=== PATIENT | male | born 1975 | race Caucasian/White ===

== ENCOUNTER → 2017-01-17 | Day surgery (SDC) | payer OTHER ==
[~2017-01-17] VITALS: Ht 177.8 cm; Wt 95.3 kg
[~2017-01-17] MED LIST: ACETAMINOPHEN 325 MG TAB PO PRN; ATOR40TA75 PO; AcetaZOLAMIDE 500MG INJECTION (J1120) As Ordered ONE; BETAMETHASONE SOLUSPAN 6MG/ML INJ 5ML (J0702) As Ordered ONE; HEALON DUET (HEALON 10MG/ML 0.55ML & HEALON ENDOCOAT 30MG/ML 0.85ML) As Ordered ONE; KETOROLAC 0.5% OPHTH SOLN OS ONE; LIDOCAINE 1% MDV 20ML VIAL SC ONE; LIDOCAINE 2% INJ 100 MG/5 ML SDV (FOR ANES.) As Ordered ONE; LIDOCAINE 4% INJ 5 ML AMP OU ONE; LR 1,000 ML IV ONE; LR 1,000 ML IV SCH; MANNITOL 20% BAG 250 ML IV ONE; MEPERIDINE INJ 25 MG/ML VIAL (J2175) IV PRN; METF750T PO; METOCLOPRAMIDE INJ 10MG/2ML VIAL (J2765) IV PRN; MIDAZOLAM INJ 2 MG/2 ML VIAL (J2250) As Ordered ONE; OFLOXACIN 0.3 % (OCUFLOX) OPTH SOL 5ML OS ONE; ONDANSETRON 4MG/2ML VIAL (J2405) As Ordered ONE; ONDANSETRON 4MG/2ML VIAL (J2405) IV PRN; PILOCARPINE 1% OPHTH SOLN 15 ML OS ONE; POVIDONE-IODINE 5% OPHTH PREP SOL 30ML As Ordered ONE; PROPARACAINE 0.5% OPHTH SOL 15ML OS PRN; PROPOFOL 200 MG/20 ML VIAL As Ordered ONE; ROCURONIUM BROMIDE 50 MG/5 ML VIAL/SYRINGE As Ordered ONE; TOBRADEX OPHTH OINT 3.5 GM As Ordered ONE; TOBRAMYCIN INJ 80 MG/2 ML VIAL (J3260) As Ordered ONE; TRIMETHOBENZAMIDE 300 MG CAP PO PRN; VITA100067 PO; fentaNYL 100 MCG/2 ML INJECTION (J3010) As Ordered ONE; fentaNYL 100 MCG/2 ML INJECTION (J3010) IV PRN
[2017-01-17] MEDS: PERCOCET 5MG/325MG TAB PO PRN ×2 (09:40→10:05)
[2017-01-17 10:48] VITALS: BP 136/91
--- NOTE | 2017-01-19 10:40 | RO ---
DATE OF PROCEDURE: 01/17/2017 PREOPERATIVE DIAGNOSIS: Failed graft left eye. POSTOPERATIVE DIAGNOSIS: Failed graft left eye. PROCEDURE: Penetrating keratoplasty and removal of the old failed graft. SURGEON: Dr. Luly Ceja ARTISAN PLASTERER: None. ANESTHESIA: General. COMPLICATIONS: None. PROCEDURE IN DETAIL: Patient was brought to the operating room, laid in supine position. The left eye was prepped and draped in a sterile fashion for ophthalmic surgery, and patient was intubated. Preoperatively, patient received mannitol and Diamox in the standard dosage. After the lid speculum was placed, the cornea was marked with a 12 corneal marker. Following this, the previously placed interrupted and continuous nylon sutures were removed with the help of the super sharp blade and tying forceps. After that, the previous failed graft was teased from the host cornea with the help of the ayesha blade, corneal scissors to the right and the left, and 0.12 forceps. The new tissue was splayed over EndoCoat on the patient's host bed and secured in place using 12 interrupted #10-0 nylon sutures. All the knots were buried. A #10-0 nylon suture was then used then used to place in an anti-torque fashion with bites in between the interrupted sutures. Laxity was removed, and knot was buried. Throughout the procedure, anterior chamber was maintained using balanced salt solution (BSS). At the end of the case, sub-Tenon's Kenalog was given, TobraDex ointment was applied, eye was patched, and patient returned to recovery room in stable condition.
== END | disposition home or self-care (01) ==
LOC: M SDC 05:44
PROVIDERS: ATTEND Ophthalmology
DX: T85.398A Other mechanical complication of other ocular prosthetic devices, implants and grafts, initial encounter (principal); E11.9 Type 2 diabetes mellitus without complications; E78.5 Hyperlipidemia, unspecified; Z79.899 Other long term (current) drug therapy; T86.8 Complications of other transplanted organs and tissues; Y82.8 Other medical devices associated with adverse incidents; Y84.8 Other medical procedures as the cause of abnormal reaction of the patient, or of later complication, without mention of misadventure at the time of the procedure

== ENCOUNTER 2018-05-30 06:25 | Day surgery (SDC) | payer OTHER ==
[~2018-05-30 06:25] MED LIST changes: +ACETAMINOPHEN 325 MG TAB PO; -ACETAMINOPHEN 325 MG TAB PO PRN; -ATOR40TA75 PO; -AcetaZOLAMIDE 500MG INJECTION (J1120) As Ordered ONE; -BETAMETHASONE SOLUSPAN 6MG/ML INJ 5ML (J0702) As Ordered ONE; -HEALON DUET (HEALON 10MG/ML 0.55ML & HEALON ENDOCOAT 30MG/ML 0.85ML) As Ordered ONE; -KETOROLAC 0.5% OPHTH SOLN OS ONE; -LIDOCAINE 1% MDV 20ML VIAL SC ONE; +LIDOCAINE 2% INJ 100 MG/5 ML SDV (FOR ANES.) As Ordered; -LIDOCAINE 2% INJ 100 MG/5 ML SDV (FOR ANES.) As Ordered ONE; -LIDOCAINE 4% INJ 5 ML AMP OU ONE; -LR 1,000 ML IV ONE; -LR 1,000 ML IV SCH; -MANNITOL 20% BAG 250 ML IV ONE; -MEPERIDINE INJ 25 MG/ML VIAL (J2175) IV PRN; -METF750T PO; -METOCLOPRAMIDE INJ 10MG/2ML VIAL (J2765) IV PRN; -MIDAZOLAM INJ 2 MG/2 ML VIAL (J2250) As Ordered ONE; -OFLOXACIN 0.3 % (OCUFLOX) OPTH SOL 5ML OS ONE; -ONDANSETRON 4MG/2ML VIAL (J2405) As Ordered ONE; -ONDANSETRON 4MG/2ML VIAL (J2405) IV PRN; -PILOCARPINE 1% OPHTH SOLN 15 ML OS ONE; -POVIDONE-IODINE 5% OPHTH PREP SOL 30ML As Ordered ONE; -PROPARACAINE 0.5% OPHTH SOL 15ML OS PRN; +PROPOFOL 200 MG/20 ML VIAL As Ordered; -PROPOFOL 200 MG/20 ML VIAL As Ordered ONE; +ROCURONIUM BROMIDE 50 MG/5 ML VIAL As Ordered; -ROCURONIUM BROMIDE 50 MG/5 ML VIAL/SYRINGE As Ordered ONE; -TOBRADEX OPHTH OINT 3.5 GM As Ordered ONE; -TOBRAMYCIN INJ 80 MG/2 ML VIAL (J3260) As Ordered ONE; -TRIMETHOBENZAMIDE 300 MG CAP PO PRN; -VITA100067 PO; -fentaNYL 100 MCG/2 ML INJECTION (J3010) As Ordered ONE; -fentaNYL 100 MCG/2 ML INJECTION (J3010) IV PRN
[2018-05-30] MEDS ORDERED: dexameTHASONE 4 MG/ML 1ML VIAL (J1100) As Ordered (06:27)
[2018-05-30] MEDS ORDERED: ONDANSETRON 4MG/2ML VIAL (J2405) As Ordered (06:27)
[2018-05-30] MEDS ORDERED: PHENYLEPHRINE HCL 10 % OPHTH. SOL 5ML OS (07:00)
[2018-05-30] MEDS ORDERED: PROPARACAINE 0.5% OPHTH SOL 15ML OS (07:01)
[2018-05-30] MEDS ORDERED: FILTER 1.2 MICRON (ADULT TPN/MANNITOL/REMICADE) XX (07:21)
[2018-05-30] MEDS: TROPICAMIDE 1% OPHTH SOLN 2ML OS (07:45)
[2018-05-30] MEDS: MANNITOL 20% BAG 250 ML IV (07:45)
[2018-05-30] MEDS: LIDOCAINE 3.5 % 1ML OPHTH TOPICAL GEL OU (07:45)
[2018-05-30] MEDS: PHENYLEPHRINE 2.5% OPHTH SOL 2ML OS (07:45)
[2018-05-30] MEDS: CYCLOPENTOLATE 2% OPHTH SOLN 2ML BTL OS (07:45)
[2018-05-30] MEDS: OFLOXACIN 0.3 % (OCUFLOX) OPTH SOL 5ML OS (07:45)
[2018-05-30] MEDS: AcetaZOLAMIDE 500MG INJECTION (J1120) IV (08:29)
[2018-05-30] MEDS ORDERED: MIDAZOLAM INJ 2 MG/2 ML VIAL (J2250) As Ordered (08:54)
[2018-05-30] MEDS ORDERED: fentaNYL 100 MCG/2 ML INJECTION (J3010) As Ordered (08:54)
[2018-05-30] MEDS: BETAMETHASONE SOLUSPAN 6MG/ML INJ 5ML (J0702) As Ordered (09:00)
[2018-05-30] MEDS: BSS with VANC/TOB/EPI for EYE CASES IR (09:00)
[2018-05-30] MEDS: TOBRAMYCIN INJ 80 MG/2 ML VIAL (J3260) As Ordered (09:00)
[2018-05-30] MEDS: BALANCED SALT IRRIGATION SOL 500ML GLASS BOTTLE (FOR OR EYE COMPOUND) As Ordered (09:00)
[2018-05-30] MEDS: HEALON DUET PRO(HEALON 10MG/ML 0.55ML & HEALON ENDOCOAT 30MG/ML 0.85ML) As Ordered (09:00)
[2018-05-30] MEDS ORDERED: VASOPRESSIN INJ 20 UNITS/ML VIAL As Ordered (09:04)
[2018-05-30] MEDS ORDERED: HYDROCORTISONE 100 MG/2 ML VIAL (J1720) As Ordered (09:06)
[2018-05-30] MEDS ORDERED: PHENYLEPHRINE INJ 10MG/ML VIAL (J2370) As Ordered (09:26)
[2018-05-30] MEDS: TOBRADEX OPHTH OINT 3.5 GM As Ordered (09:30)
[2018-05-30] MEDS ORDERED: GLYCOPYRROLATE INJ 0.2 MG/ML 2 ML VIAL As Ordered (09:40)
[2018-05-30] MEDS ORDERED: NEOSTIGMINE 10 MG/10 ML VIAL (J2710) As Ordered (09:40)
[2018-05-30] MEDS ORDERED: ePHEDrine SULFATE 25 MG/5 ML(5MG/ML) SYRINGE As Ordered (09:41)
[2018-05-30] MEDS ORDERED: PHENYLephrine HCL 500 MCG/5 ML (100MCG/ML) SYRINGE (J2370) As Ordered (09:41)
[2018-05-30] MEDS: POVIDONE-IODINE 5% OPHTH PREP SOL 30ML As Ordered (10:04)
[2018-05-30] MEDS ORDERED: TRIMETHOBENZAMIDE 300 MG CAP PO (10:30)
[2018-05-30] MEDS ORDERED: KETOROLAC 0.5% OPHTH SOLN OS (10:30)
[2018-05-30] MEDS ORDERED: AcetaZOLAMIDE 500 MG ER CAP PO (10:30)
== END 2018-05-30 11:25 | disposition home or self-care (01) ==
LOC: M SDC 06:25
DX: T86.841 Corneal transplant failure (principal); I10 Essential (primary) hypertension; E11.9 Type 2 diabetes mellitus without complications; Z79.899 Other long term (current) drug therapy; E66.9 Obesity, unspecified; Z68.37 Body mass index [BMI] 37.0-37.9, adult
CPT/HCPCS: 65750